=== PATIENT | male | born 1945 | race Caucasian/White ===

== ENCOUNTER → 2022-02-22 | Outpatient (CLI) | payer MEDICARE, SELFPAY ==
--- NOTE | 2022-02-22 15:35 | VDLE_ITS ---
Reason For Study: pain RIGHT GSV is normal. CFV is compressible, spontaneous, phasic, competent and demonstrates normal augmentation. FV is compressible, spontaneous, phasic, competent and demonstrates normal augmentation. POP V is compressible, spontaneous, phasic, competent and demonstrates normal augmentation. T/P Trunk is compressible. PTV is compressible. RT PerV is compressible. VL/Venous Duplex US, Unilateral Interpretation Summary Deep veins of the right lower extremity are patent and compressible segmentally . There is no evidence of right lower extremity deep vein thrombosis. Valvular competence zacarias ears intact within the proximal deep venous system on the right . The right great saphenous vein a ppears patent and compressible segmentally. Ordering Physician: Elvira Dexter Performed By: Deandre Rider RVT
== END | disposition home or self-care (01) ==
PROVIDERS: PCP Family Medicine; Visit Provider Physician Assistant Surgical
DX: M79.661 Pain in right lower leg (principal)
CPT/HCPCS: 93971

== ENCOUNTER → 2022-05-13 | Outpatient (CLI) | payer MEDICARE, SELFPAY ==
--- NOTE | 2022-05-13 08:40 | ART_ITS ---
Reason For Study: claudication, PAD Procedure A bilateral lower extremity continuous wave Doppler with analog waveform analysis,segmental pressures,and ankle brachial indexes with exercise. Pt walked on the treadmill at 2.0 MPH with a 5% incline for 5 minutes with no complaints. Left Segmental Pressures Left brachial= 156mmHg. Left posterior tibial artery = 172mmHg. Left dorsalis pedis artery = 192mmHg. The left dorsalis pedis waveforms are triphasic. The left posterior tibial artery waveforms are triphasic. Right Segmental Pressures Right brachial= 150mmHg. Right posterior tibial artery = 222mmHg. Right dorsalis pedis artery = 214mmHg. The right dorsalis pedis waveforms are triphasic. The right posterior tibial artery waveforms are triphasic. Indices The right ankle brachial index by the dorsalis pedis is 1.37. The right ankle brachial index by the posterior tibial artery is 1.42. The right post exercise ankle brachial index is 1.47. The left ankle brachial index by the dorsalis pedis is 1.23. The left ankle brachial index by the posterior tibial artery is 1.1. The left post exercise ankle brachial index is 1.32. VL/Lower Ext Art Exam w/ Exercise Interpretation Summary Triphasic Doppler waveforms are noted at ankle level bilaterally. Pulse-volume recordings appear satisfactory at low thigh, calf, and ankle levels bilaterally. The resting righ t ankle-brachial index is supra-normal. The resting left ankle-brachial index is normal. Followi ng a period of exercise, ankle pressures augment bilaterally, which is a normal physiological response. There is evidence of arterial calcification at ankle level on the right. There is no evidence of significant arterial occlusive disease in the lower extremities bilaterally. Ordering Physician: Nuno Kahn Performed By: Deandre Rider RVT
== END | disposition home or self-care (01) ==
LOC: CVS 08:39
PROVIDERS: PCP Family Medicine; Referring Provider Surgery; Visit Provider Surgery
DX: I73.9 Peripheral vascular disease, unspecified (principal)
CPT/HCPCS: 93924

== ENCOUNTER → 2022-07-28 | Outpatient (CLI) | payer MEDICARE, SELFPAY ==
--- NOTE | 2022-07-28 07:30 | MRI_ITS ---
HISTORY: Low back pain, history of surgery 4 years ago. TECHNIQUE: Multiplanar and multisequence MR images of the lumbar spine were obtained without intravenous contrast. 127 images. COMPARISON: XR 07/11/2017. FINDINGS: VERTEBRAE: Vertebral body heights maintained. Degenerative bone marrow endplate changes from L2-3 through L5-S1, most prominent at L4-5. ALIGNMENT: No significant anterior or posterior subluxation. CONUS: Normal morphology and position of the conus medullaris at L1-2. INTERVERTEBRAL DISCS: T12-L1: No significant posterior disc protrusion, central canal stenosis, or foraminal narrowing based on the sagittal images. L1-2: Minimal disc bulge and facet arthropathy. No significant central canal stenosis. Mild bilateral foraminal narrowing. L2-3: Minimal disc bulge. Decompressive laminectomy. No significant central canal stenosis. Facet arthropathy with moderate bilateral foraminal narrowing. L3-4: Mild posterior disc protrusion, facet arthropathy, and decompressive laminectomy. No significant central canal stenosis. Severe right and moderate-severe left foraminal narrowing with bilateral L3 nerve root impingement. L4-5: Minimal disc bulge. Decompressive laminectomy. No significant central canal stenosis. Facet arthropathy with moderate-severe bilateral foraminal narrowing with bilateral L4 nerve root abutment. L5-S1: Mild disc bulge with superimposed right paracentral disc protrusion abutting the right S1 nerve root. Decompressive laminectomy. No significant central canal stenosis. Moderate bilateral foraminal narrowing with probable bilateral L5 nerve root impingement. SOFT TISSUES: Posterior soft tissue edema at the decompressive laminectomy site. 1.5 cm right renal cyst. MRI/Spine Lumbar (Routine) IMPRESSION: L2-5 decompressive laminectomies with degenerative change resulting in moderate-severe foraminal narrowing and nerve root impingement as above. No significant spinal canal stenosis. Electronically Signed: Mary Alice Omer MD at 11:36 EST ,
== END | disposition home or self-care (01) ==
PROVIDERS: PCP Family Medicine; Referring Provider Orthopaedic Surgery; Visit Provider Orthopaedic Surgery
DX: M48.061 Spinal stenosis, lumbar region without neurogenic claudication (principal); M79.89 Other specified soft tissue disorders; N28.1 Cyst of kidney, acquired; M51.26 Other intervertebral disc displacement, lumbar region; M47.816 Spondylosis without myelopathy or radiculopathy, lumbar region; M51.27 Other intervertebral disc displacement, lumbosacral region; M51.36 Other intervertebral disc degeneration, lumbar region
CPT/HCPCS: 72148

== ENCOUNTER → 2023-04-29 | Outpatient (CLI) | payer MEDICARE, SELFPAY ==
--- NOTE | 2023-04-29 10:30 | RAD_ITS ---
EXAM: XR THORACIC SPINE, 4 OR MORE VIEWS CLINICAL INDICATION: LOWER BACK PAIN TECHNIQUE: Frontal, lateral and oblique views of the thoracic spine. COMPARISON: No relevant prior studies available. FINDINGS: VERTEBRAE: Endplate spondylosis. Loss of the intervertebral body disc height. Preserved vertebral body height. No fracture. Preservation of the normal thoracic kyphosis. No significant facet arthropathy. DISC SPACES: Unremarkable. Disc spaces are maintained. TUBES, LINES AND DEVICES: Metallic leads in the spinal canal may suggest spinal stimulator leads. RAD/Thoracic Spine Min 4 Views IMPRESSION: No acute findings in the thoracic spine. Electronically Signed: Kel Fan MD at 16:37 EDT ,
== END | disposition home or self-care (01) ==
LOC: MTRAD 10:23
PROVIDERS: PCP Family Medicine; Referring Provider Anesthesiology Pain Medicine; Visit Provider Anesthesiology Pain Medicine
DX: M51.34 Other intervertebral disc degeneration, thoracic region (principal)
CPT/HCPCS: 72074

== ENCOUNTER → 2024-11-29 | Outpatient (CLI) | payer MEDICARE, SELFPAY ==
--- NOTE | 2024-11-29 09:15 | RAD_ITS ---
PROCEDURE: ANKLE MIN 3 VIEWS 11/29/2024 REASON FOR EXAM: PAIN TECHNIQUE: 3 views of the right ankle COMPARISON: None available FINDINGS: No fracture or dislocation. The joint spaces appear within limits. Arterial vascular calcifications noted. No periosteal reaction or osseous destruction. RAD/Ankle min 3 Views IMPRESSION: No fracture or dislocation. Reading Location: [id number]
--- NOTE | 2024-11-29 10:26 | RAD_ITS ---
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 No fracture or dislocation. Vascular calcifications noted. No periosteal reaction or osseous destruction. 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 Reading Location: [id number]
== END | disposition home or self-care (01) ==
LOC: RAD 09:14
PROVIDERS: PCP Family Medicine; Referring Provider Anesthesiology Pain Medicine; Visit Provider Anesthesiology Pain Medicine
DX: M25.571 Pain in right ankle and joints of right foot (principal)
CPT/HCPCS: 73610; 73630